=== PATIENT | female | born 1980 | race Caucasian/White ===

== ENCOUNTER 2017-01-04 09:06 | Emergency (ER) | payer BC ==
[2017-01-04 09:28] VITALS: BP 142/79
--- NOTE | 2017-01-04 10:00 | UC ---
Complaint Female HPI - HPI Summary HPI Summary: The patient comes in today for: 1. Pressure with urination: Onset: 1-2 days. Palliative/provocative: Nothing makes it better or worse. Quality: Pressure. Region: Lower middle abdomen. Severity: Usually only with urination and having a full bladder. Time: Comes and goes. Associated symptoms: Fevers: None. Last UTI: May. : 11 weeks . (LMP: October 19). Urinary urgency: None. Urinary frequency: Present, but she states that she has had this for 12 weeks. * - History Of Current Complaint Chief Complaint: UCGU Stated Complaint: POSSIBLE UTI Time Seen by Provider: 01/04/17 09:53 Hx Obtained From: Patient Hx Last Menstrual Period: 10-19-16 - Allergies/Home Medications Allergies/Adverse Reactions: Allergies Allergy/AdvReac Type Severity Reaction Status Date / Time No Known Allergies Allergy Verified 01/04/17 09:24 Home Medications: Home Medications Aspirin [Aspirin 81 MG TAB] 81 mg PO 01/04/17 [History] Labetalol TAB* [Trandate TAB*] 200 mg PO BID 01/04/17 [History Confirmed ] Prenat Vit W/ Iron Carbonyl-Fe [Ob Complete/Dha 30-10-1-200 mg] 1 cap PO [History] PMH/Surg Hx/FS Hx/Imm Hx Previously Healthy: No Endocrine History Of: Denies: Diabetes, Thyroid Disease, Hyperthyroidism, Hypothyroidism, Dyslipidemia Cardiovascular History Of: Reports: Hypertension Denies: Cardiac Disorders, Pacemaker/ICD, Myocardial Infarction, Congestive Heart Failure, Atrial Fibrillation, Deep Vein Thrombosis, Bleeding Disorders Respiratory History Of: Denies: COPD, Asthma, Bronchitis, Pneumonia, Pulmonary Embolism GI/ History Of: Denies: Gastroesophageal Reflux, Ulcer, Gastrointestinal Bleed, Gall Bladder Disease, Kidney Stones, Diverticulitis, Renal Disease, Urosepsis Neurological History Of: Denies: TIA, CVA, Dementia, Seizures, Migraine Psychological History Of: Denies: Anxiety, Depression, Bipolar Disorder, Schizophrenia, Post Traumatic Stress Disorder Cancer History Of: Denies: Lung Cancer, Colorectal Cancer, Breast Cancer, Prostate Cancer, Cervical Cancer Other History Of: Anticoagulant Therapy Negative For: HIV, Hepatitis B - 81 mg aspirin daily., Hepatitis C - Surgical History Surgical History: Yes Surgery Procedure, Year, and Place: constance - Family History Known Family History: Positive: Hypertension, Diabetes Negative: Cardiac Disease - Social History Occupation: Employed Full-time Alcohol Use: None Substance Use Type: None Smoking Status (MU): Former Smoker - Immunization History Most Recent Influenza Vaccination: Fall 2014 Most Recent Tetanus Shot: within 10 years Most Recent Pneumonia Vaccination: never Review of Systems Constitutional: Negative Skin: Negative Eyes: Negative ENT: Negative Respiratory: Negative Cardiovascular: Negative Gastrointestinal: Negative Genitourinary: Dysuria, Frequency All Other Systems Reviewed And Are Negative: Yes Physical Exam Triage Information Reviewed: Yes Appearance: Well-Appearing, No Pain Distress, Well-Nourished Vital Signs: Initial Vital Signs Temp 97.7 F 01/04/17 09:18 Pulse 73 01/04/17 09:18 Resp 14 01/04/17 09:18 BP 142/79 01/04/17 09:18 Pulse Ox 100 01/04/17 09:18 Vital Signs Reviewed: Yes Eyes: Positive: Conjunctiva Clear. Negative: Discharge ENT: Positive: Hearing grossly normal. Negative: Pharyngeal erythema, Nasal congestion, Nasal drainage, TM bulging, TM dull, Tonsillar swelling, Tonsillar exudate Dental: Negative: Gross Decay/Caries @, Dental Fracture @ Neck: Positive: Supple, Nontender, No Lymphadenopathy. Negative: Nuchal Rigidity Respiratory: Positive: Lungs clear, No respiratory distress, No accessory muscle use. Negative: Crackles, Rhonchi, Wheezing Cardiovascular: Positive: RRR, No Murmur Abdomen Description: Positive: Nontender, No Organomegaly, Soft. Negative: CVA Tenderness (R), CVA Tenderness (L), Distended, Guarding Musculoskeletal: Positive: Strength Intact, ROM Intact Neurological: Positive: Alert, Muscle Tone Normal Psychological: Positive: Age Appropriate Behavior, Consolable Skin: Negative: rashes, breakdown Diagnostics - Laboratory Diagnostic Studies Completed/Ordered: Urine screen: specific gravity: 1.020. WBC: 2+. Nitrite: (-). Blood: (-). Glucose: (-) Complaint Female Dx - Differential Dx/Diagnosis Differential Diagnosis/HQI/PQRI: Renal Colic, Urinary Tract Infection Provider Diagnoses: intrauterine . UTI. High blood pressure. Discharge - Discharge Plan Condition: Stable Disposition: HOME Patient Education Materials: Urinary Tract Infection in Women (ED) Referrals: Maggy Arteaga NP [Primary Care Provider] - 1 Week (Please see your primary care provider or [employer]ACH[employer] provider next week to see how well you are doing and to check your blood pressure.)
== END 2017-01-04 10:27 | disposition home or self-care (01) ==
LOC: UCEAST 09:06
DX: O23.41 Unspecified infection of urinary tract in pregnancy, first trimester (principal); O26.891 Other specified pregnancy related conditions, first trimester; Z3A.11 11 weeks gestation of pregnancy; Z79.82 Long term (current) use of aspirin; R03.0 Elevated blood-pressure reading, without diagnosis of hypertension; Z87.891 Personal history of nicotine dependence
CPT/HCPCS: 81003; 84702; 87086; 99212; G0463

== ENCOUNTER 2017-07-21 12:01 | Inpatient (IN) | payer BC ==
[2017-07-21] MEDS ORDERED: Oxytocin in LR* 20 UNITS/1,000 ML BAG IVPB SCH (13:00)
[2017-07-21 15:27] LABS: Hematocrit 35 % (35-47); Hemoglobin 11.7 g/dl (12.0-16.0); Mean Corpuscular HGB Conc 33 g/dl (31-36); Mean Corpuscular Hemoglobin 30 pg (27-31); Mean Corpuscular Volume 90 fL (80-97); Mean Platelet Volume 11 um3 (7.4-10.4); Red Blood Count 3.91 10^6/ul (4.0-5.4); Red Cell Distribution Width 15 % (10.5-15); White Blood Count 9.1 10^3/ul (3.5-10.8)
[2017-07-21 15:48] LABS: Urine Bacteria 1+ (Absent); Urine Bilirubin Negative (Negative); Urine Glucose Negative (Negative); Urine Nitrite Negative (Negative)
[2017-07-21] MEDS ORDERED: PROCHLORPERAZINE INJ 5 MG/ML 2 ML VIAL IV ONE (17:00)
[2017-07-21] MEDS ORDERED: Labetalol TAB* 200 MG ONE (19:05)
[2017-07-21] MEDS ORDERED: Nalbuphine* 20 MG/ML 1 ML VIAL ONE (19:35)
[2017-07-21] MEDS ORDERED: Nalbuphine* 20 MG/ML 1 ML VIAL IV PRN (19:36)
[2017-07-21] MEDS ORDERED: OBEPIDURAL* 250 ML ONE (20:07)
[2017-07-21] MEDS ORDERED: Sodium Citrate/Citric Acid* 15 ML UDC PO PRN (20:24)
[2017-07-21] MEDS ORDERED: Famotidine TAB* 20 MG PO PRN (20:24)
[2017-07-21] MEDS ORDERED: EPHEDrine (Pressors)* 50 MG/ML VIAL IV PUSH PRN (20:24)
[2017-07-21] MEDS ORDERED: Phenylephrine IV* 40 MCG/ML 10 ML SYRINGE IV PUSH PRN (20:24)
[2017-07-21] MEDS ORDERED: Labetalol TAB* 200 MG PO SCH (21:00)
[2017-07-21] MEDS ORDERED: OBEPIDURAL* 250 ML EPIDURAL SCH (21:00)
[2017-07-22] MEDS ORDERED: Labetalol IV* 5 MG/ML 20 ML VIAL IV PUSH ONE ×2 (01:17→02:00)
[2017-07-22] MEDS ORDERED: Labetalol IV* 5 MG/ML 20 ML VIAL ONE (01:20)
[2017-07-22] MEDS ORDERED: Ondansetron INJ* 2 MG/ML VIAL IV ONE (05:15)
[2017-07-22] MEDS ORDERED: Ondansetron INJ* 2 MG/ML VIAL ONE (05:20)
[2017-07-22] MEDS ORDERED: Lidocaine 2% PF* 10 ML AMP ONE ×2 (07:26→08:51)
[2017-07-22] MEDS: Labetalol TAB* 200 MG PO SCH ×2 (08:37→20:30)
[2017-07-22] MEDS ORDERED: Dibucaine 1% 28.35 GM TUBE PR PRN (09:34)
[2017-07-22] MEDS ORDERED: Witch Hazel PAD* JAR TOPICAL PRN (09:34)
[2017-07-22] MEDS ORDERED: Glycerin ADULT SUPP PR PRN (09:34)
[2017-07-22] MEDS ORDERED: Acetaminophen TAB* 325 MG PO PRN (09:34)
[2017-07-22] MEDS ORDERED: Oxytocin in LR* 20 UNITS/1,000 ML BAG IVPB SCH (10:00)
[2017-07-22] MEDS: Ibuprofen TAB* 600 MG PO PRN ×2 (10:53→20:30)
[2017-07-22] MEDS ORDERED: Simethicone TAB* 80 MG TAB.CHEW PO SCH (12:30)
[2017-07-22] MEDS: [UNRECOGNIZED DRUG - OTHER] PO SCH (14:58)
[2017-07-22] MEDS: Docusate CAP* 100 MG PO SCH ×2 (14:58→20:29)
[2017-07-23] MEDS: Ibuprofen TAB* 600 MG PO PRN ×3 (04:26→22:59)
[2017-07-23] MEDS: Labetalol TAB* 200 MG PO SCH ×2 (07:33→21:38)
[2017-07-23] MEDS: Docusate CAP* 100 MG PO SCH ×3 (07:33→21:38)
[2017-07-23 08:03] LABS: Hematocrit 27 % (35-47); Mean Corpuscular HGB Conc 34 g/dl (31-36); Mean Corpuscular Hemoglobin 30 pg (27-31); Mean Corpuscular Volume 90 fL (80-97); Mean Platelet Volume 10 um3 (7.4-10.4); Red Blood Count 2.96 10^6/ul (4.0-5.4); Red Cell Distribution Width 15 % (10.5-15); White Blood Count 15.5 10^3/ul (3.5-10.8)
[2017-07-23] MEDS: [UNRECOGNIZED DRUG - OTHER] PO SCH (09:31)
[2017-07-23] MEDS: Ferrous Gluconate TAB* 324 MG TAB PO SCH ×2 (09:31→21:38)
[2017-07-24] MEDS: Labetalol TAB* 200 MG PO SCH (08:33)
[2017-07-24] MEDS: Ferrous Gluconate TAB* 324 MG TAB PO SCH (08:33)
[2017-07-24] MEDS: Docusate CAP* 100 MG PO SCH ×2 (08:33→13:30)
[2017-07-24 12:09] VITALS: BP 128/77
[2017-07-24] MEDS: [UNRECOGNIZED DRUG - OTHER] PO SCH (14:42)
== END 2017-07-24 14:24 | disposition home or self-care (01) | DRG 560 ==
LOC: MCHOBOUT 12:01 → MCHOB 12:59
PROVIDERS: ADMIT Obstetrics & Gynecology; ATTEND Obstetrics & Gynecology
PROC: 10907ZC Drainage of Amniotic Fluid, Therapeutic from Products of Conception, Via Natural or Artificial Opening (ICD-10-PCS; principal; 2017-07-21)
PROC: 3E0P3VZ Introduction of Hormone into Female Reproductive, Percutaneous Approach (ICD-10-PCS; 2017-07-21)
PROC: 10H07YZ Insertion of Other Device into Products of Conception, Via Natural or Artificial Opening (ICD-10-PCS; 2017-07-22)
PROC: 4A1H7CZ Monitoring of Products of Conception, Cardiac Rate, Via Natural or Artificial Opening (ICD-10-PCS; 2017-07-22)
PROC: 10E0XZZ Delivery of Products of Conception, External Approach (ICD-10-PCS; 2017-07-22)
DX: O13.4 Gestational [pregnancy-induced] hypertension without significant proteinuria, complicating childbirth (principal); Z37.0 Single live birth; Z3A.39 39 weeks gestation of pregnancy
CPT/HCPCS: 36415; 81003; 81015; 85025; 86850; 86900; 86901; 87086; 88307; A9270-GY; J2001; J2300; J2405

== ENCOUNTER 2018-03-13 20:50 | Emergency (ER) | payer BC ==
[2018-03-13 21:04] VITALS: BP 147/103
[2018-03-13] MEDS ORDERED: Amoxicillin/Clavulanate TAB* 875 MG PO ONE (21:11)
--- NOTE | 2018-03-13 21:31 | RAD ---
INDICATION: Dog bite right thumb. TECHNIQUE: 3 views of the right thumb were obtained. FINDINGS: The bones are normal alignment. No fracture or radiopaque foreign body is seen. Joint spaces appear maintained. IMPRESSION: NO FRACTURE OR RADIOPAQUE FOREIGN BODY IS SEEN.
--- NOTE | 2018-03-13 21:52 | UC ---
Kerry Garrido Jade, scribed for Hola Felix MD on 03/13/18 at 2114 . Bite Injury/Animal HPI - HPI Summary HPI Summary: Pt is a 38 y/o female who presents to [facility] [place] s/p dog bite. Pt states her dog bit her right thumb about two hours ago. She states her finger is bleeding and swollen. Pt denies cleaning the wound. She is currently breast feeding. Pain intensity is a 4/10. - History of Current Complaint Chief Complaint: UCBiteInjury Stated Complaint: DOG BITE ON HAND Time Seen by Provider: 03/13/18 21:06 Hx Obtained From: Patient Hx Last Menstrual Period: mirena Severity Initially: Moderate Pain Intensity: 4 Pain Scale Used: 0-10 Numeric Onset/Duration: Sudden Onset, Still Present Type of Bite: Pet - Dog Character: Puncture, Abrasion/Laceration Associated Signs And Symptoms: Positive: Swelling - Allergies/Home Medications Allergies/Adverse Reactions: Allergies Allergy/AdvReac Type Severity Reaction Status Date / Time No Known Allergies Allergy Verified 03/13/18 20:58 Home Medications: Home Medications Labetalol TAB* [Trandate TAB*] 03/13/18 [History] Levonorgestrel (Iud) [Mirena IUD] 03/13/18 [History] PMH/Surg Hx/FS Hx/Imm Hx Endocrine History: Other - NEGATIVE: diabetes Other Endocrine History: . Cardiovascular History: Other - NEGATIVE: cardiac disease Other Cardiovascular History: . Other History Of: Anticoagulant Therapy Negative For: HIV, Hepatitis B - 81 mg aspirin daily., Hepatitis C - Surgical History Surgical History: Yes Surgery Procedure, Year, and Place: constance - Family History Known Family History: Positive: Hypertension, Diabetes Negative: Cardiac Disease - Social History Alcohol Use: None Substance Use Type: None Smoking Status (MU): Former Smoker - Immunization History Most Recent Influenza Vaccination: Fall 2014 Most Recent Tetanus Shot: within 10 years Most Recent Pneumonia Vaccination: never Review of Systems Skin: Other - Dog bite on base of right thumb Neurovascular: Other - NEGATIVE: decreased sensation All Other Systems Reviewed And Are Negative: Yes Physical Exam - Summary Physical Exam Summary: General: well-appearing, no pain distress Skin: warm, color reflects adequate perfusion, dry. 4 mm puncture wound over radial side of base of right thumb, not actively bleeding. 1.4 cm partial thickness laceration over ulnar aspect of base of right thumb, not actively bleeding. Head: normal Eyes: EOMI, MANUEL ENT: normal Neck: supple, nontender Respiratory: CTA, breath sounds present Cardiovascular: RRR Abdomen: soft, nontender Bowel: present Musculoskeletal: normal, strength/ROM intact of right thumb. Neurological: sensory/motor intact of right thumb, A&O x3 Psychological: affect/mood appropriate Triage Information Reviewed: Yes Vital Signs: Initial Vital Signs Temp 99.2 F 03/13/18 20:59 Pulse 93 03/13/18 20:59 Resp 16 03/13/18 20:59 BP 147/103 03/13/18 20:59 Pulse Ox 100 03/13/18 20:59 Vital Signs Reviewed: Yes Diagnostics - Radiology Thumb XR Xray Interpretation: No Acute Changes - NO FRACTURE OR RADIOPAQUE FOREIGN BODY IS SEEN. physician reviewed radiology report. Radiology Interpretation Completed By: Radiologist Bite Injury Course/Dx - Course Course Of Treatment: THUMB FROM, NO OBVIOUS LIGAMENTOUS INJURY ON EXAM. WOUNDS CLEANED IN CLINIC. STARTED ON AUGMENTIN. PATIENT REPORTS UTD WITH TETANUS. DISCUSSED LOOSE SUTURE CLOSURE OF THE LARGER OF THE TWO DOG BITE WOUNDS (THE SMALLER IS A PUNCTURE WOUND); THE PATIENT DECLINED. F/U HANDS. BP noted and advised to follow up with PCP. - Differential Dx/Diagnosis Provider Diagnoses: DOG BITE RIGHT HAND. Elevated BP without dx of HTN. Discharge - Sign-Out/Discharge Documenting (check all that apply): Discharge/Admit/Transfer - Discharge - Discharge Plan Condition: Stable Disposition: HOME Prescriptions: Amoxicillin/Clavulanate TAB* [Augmentin TAB 875*] 875 mg PO BID #19 tab Patient Education Materials: Animal Bite (ED) Referrals: Maggy Arteaga NP [Primary Care Provider] - Yuliana Sanchez MD [Medical Doctor] - Additional Instructions: FOLLOW UP WITH DR SANCHEZ, ORTHOPEDICS. GET RECHECKED FOR ANY WORSENING OF YOUR CONDITION; SIGNS OF INFECTION OR QUESTIONS OR CONCERNS. Your blood pressure was elevated during todays visit; please follow up with your primary care provider within a week for further evaluation - Billing Disposition and Condition Condition: STABLE Disposition: Home The documentation as recorded by the Kerry mondragon Jade accurately reflects the service I personally performed and the decisions made by me, Hola Felix MD.
== END 2018-03-13 22:05 | disposition home or self-care (01) ==
LOC: UCEAST 20:50
DX: S61.031A Puncture wound without foreign body of right thumb without damage to nail, initial encounter (principal); W54.0XXA Bitten by dog, initial encounter; Y93.9 Activity, unspecified; Y92.9 Unspecified place or not applicable; R03.0 Elevated blood-pressure reading, without diagnosis of hypertension; Z79.01 Long term (current) use of anticoagulants; Z87.891 Personal history of nicotine dependence; Z82.49 Family history of ischemic heart disease and other diseases of the circulatory system; Z83.3 Family history of diabetes mellitus
CPT/HCPCS: 99213; A9270-GY; G0463

== ENCOUNTER 2019-08-15 08:44 | Emergency (ER) | payer BC ==
[2019-08-15 08:54] VITALS: BP 155/114
--- NOTE | 2019-08-15 11:27 | UC ---
Throat Pain/Nasal You HPI - HPI Summary HPI Summary: 2 DAYS OF SORE THROAT AND PAIN WITH SWALLOWING. NO FEVER, COUGH OR CONGESTION. 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 - History of Current Complaint Chief Complaint: UCGeneralIllness Stated Complaint: THROAT PAIN Time Seen by Provider: 08/15/19 08:48 Hx Obtained From: Patient Hx Last Menstrual Period: 08/08/19 Onset/Duration: Gradual Onset, Lasting Days, Still Present Severity: Moderate Pain Intensity: 0 Pain Scale Used: 0-10 Numeric Cough: None Associated Signs & Symptoms: Positive: Negative - Allergies/Home Medications Allergies/Adverse Reactions: Allergies Allergy/AdvReac Type Severity Reaction Status Date / Time No Known Allergies Allergy Verified 08/15/19 08:48 Home Medications: Home Medications Omeprazole 20 mg PO DAILY 08/15/19 [History Confirmed 08/15/19] PMH/Surg Hx/FS Hx/Imm Hx Cardiovascular History: Hypertension Other History Of: Anticoagulant Therapy Negative For: HIV, Hepatitis B - 81 mg aspirin daily., Hepatitis C - Surgical History Surgical History: Yes Surgery Procedure, Year, and Place: [facility] 2005 - Family History Known Family History: Positive: Hypertension, Diabetes Negative: Cardiac Disease - Social History Alcohol Use: None Substance Use Type: None Smoking Status (MU): Former Smoker Length of Time of Smoking/Using Tobacco: 1 year - Immunization History Most Recent Influenza Vaccination: Fall 2014 Most Recent Tetanus Shot: within 10 years Most Recent Pneumonia Vaccination: never Review of Systems All Other Systems Reviewed And Are Negative: Yes Constitutional: Positive: Negative ENT: Positive: Sore Throat Respiratory: Positive: Negative Cardiovascular: Positive: Negative Gastrointestinal: Positive: Negative Physical Exam Triage Information Reviewed: Yes Appearance: Well-Appearing, No Pain Distress, Well-Nourished Vital Signs: Initial Vital Signs Temp 98.6 F 08/15/19 08:49 Pulse 96 08/15/19 08:49 Resp 18 08/15/19 08:49 BP 155/114 08/15/19 08:49 Pulse Ox 99 08/15/19 08:49 Laboratory Tests 08/15/19 08:58 Group A Strep Rapid Positive A Vital Signs Reviewed: Yes Eyes: Positive: Conjunctiva Clear ENT: Positive: Hearing grossly normal, Pharyngeal erythema, TMs normal, Tonsillar swelling Neck: Positive: Supple, No Lymphadenopathy, Tenderness @ Respiratory Exam: Normal Cardiovascular Exam: Normal Abdomen Description: Positive: Soft Musculoskeletal: Positive: No Edema Neurological: Positive: Alert Psychological: Positive: Age Appropriate Behavior Skin: Negative: Rashes Throat Pain/Nasal Course/Dx - Differential Dx/Diagnosis Provider Diagnosis: Strep pharyngitis Discharge ED - Sign-Out/Discharge Documenting (check all that apply): Patient Departure All imaging exams completed and their final reports reviewed: No Studies - Discharge Plan Condition: Stable Disposition: HOME Prescriptions: Amoxicillin PO (*) [Amoxicillin 500 MG CAP*] 500 mg PO Q12H #20 cap Patient Education Materials: Strep Throat (ED) Referrals: Maggy Arteaga NP [Primary Care Provider] - If Needed Additional Instructions: STREP POSITIVE. TAKE ANTIBIOTICS FOR THE FULL 10 DAYS. OTC CHLORASEPTIC OR CEPACOL LOZENGES AND/OR IBUPROFEN FOR SORE THROAT NEEDED ONCE SYMPTOMS RESOLVED - NEW TOOTHBRUSH DO NOT SHARE FOOD, DRINK, UTENSILS - Billing Disposition and Condition Condition: STABLE Disposition: Home
== END 2019-08-15 09:27 | disposition home or self-care (01) ==
LOC: UCEAST 08:44
DX: J02.0 Streptococcal pharyngitis (principal); I10 Essential (primary) hypertension; Z87.891 Personal history of nicotine dependence
CPT/HCPCS: 87651; 99212; G0463